=== PATIENT | male | born 2005 | race Caucasian/White ===

== ENCOUNTER → 2023-03-01 | Outpatient (CLI) | payer BC ==
--- NOTE | 2023-03-02 14:06 | MR ---
EXAMINATION TYPE: MR knee LT wo con DATE OF EXAM: 03/01/2023 COMPARISON: Outside left knee x-ray March 01, 2023 HISTORY: Left knee pain and swelling due to hockey injury 2 weeks ago. TECHNIQUE: Multiplanar, multisequence images of the knee is performed without IV contrast. FINDINGS: Exam suboptimal as there is motion artifact degradation. MEDIAL MENISCUS: Anterior and posterior horns are intact without tear. LATERAL MENISCUS: Anterior and posterior horns are intact without tear. CRUCIATE LIGAMENTS: The anterior and posterior cruciate ligaments are intact and unremarkable. COLLATERAL LIGAMENTS: The medial collateral ligament and lateral collateral ligament complex are inta ct and unremarkable. EXTENSOR MECHANISM: Visualized quadriceps and patellar tendons are intact. Small amount of fluid is s een deep to the inferior patellar tendon. EFFUSION: [id number]-dn-tomlomvx size suprapatellar joint effusion. POPLITEAL CYST: No popliteal/castillo cyst. TRICOMPARTMENT SPACES: Tricompartment joint spaces are maintained. No significant spurring is seen. CARTILAGE: Tricompartment articular cartilage is preserved. BONE MARROW SIGNAL: No focal abnormal marrow signal is appreciated. OTHER: No additional significant abnormality is appreciated. IMPRESSION: 1. Suboptimal study. No meniscal or ligamentous tear is seen. Small to moderate-size suprapatellar micheal int effusion noted.
== END | disposition home or self-care (01) ==
LOC: RADMRIMAIN 16:19
PROVIDERS: ATTEND Orthopaedic Surgery
DX: M25.462 Effusion, left knee (principal); M25.562 Pain in left knee

== ENCOUNTER 2023-12-13 08:46 | Day surgery (SDC) | payer BC ==
[2023-12-10 15:34] VITALS: BMI 22.4
--- NOTE | 2023-12-12 09:36 | P.HPOR ---
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 He played in a hockey game when he bent over and felt a pop in his knee. He's had pain ever since. He's been unable really straighten his knee out. He is having pain with any weightbearing activities and using crutches. He denies previous significant problems. Review of Systems Per HPI Past Medical History Past Medical History: No Reported History Additional Past Medical History / Comment(s): Injured rt knee playing hockey. History of Any Multi-Drug Resistant Organisms: None Reported Past Surgical History: Tonsillectomy Additional Past Surgical History / Comment(s): wisdom teeth extracted-received sedation Past Anesthesia/Blood Transfusion Reactions: No Reported Reaction Smoking Status: Never smoker - Past Family History Father Family Medical History: No Reported History Medications and Allergies Home Medications Medication Instructions Recorded Confirmed Type Acetaminophen [Tylenol] 325 mg PO Q4H PRN 12/10/23 12/10/23 History Allergies Allergy/AdvReac Type Severity Reaction Status Date / Time No Known Allergies Allergy Verified 12/10/23 15:25 Physical Examination - Knee right Appearance: effusion Effusion grade: grade 2 Tenderness with palpation: medial ROM: extension: -25 degrees ROM: flexion: 100 degrees Crepitus with motion: Yes Strength: extension: 5/5 Strength: flexion: 5/5 Meniscal tests: medial meniscal tests: positive, medial joint line pain: positive Results Patient is a well-developed well-nourished male approximately 6 foot tall, 160 pounds of mesomorphic habitus. HEENT exam is nonfocal, neck is supple. He has painless passive motion of the right hip. Straight leg raise negative. He is tender about the medial joint line of the right knee. Collaterals are stable, Mya was negative, Anirudh elicits medial pain. His distal neurovascular appears intact in the right lower extremity. - Diagnostic results Knee MRI: image reviewed (MRI of the right knee is reviewed and shows a medial meniscal tear.) Assessment and Plan Assessment: Right knee symptomatic medial meniscal tear Plan: I talked to the patient regarding his condition along with treatment options. At this point he is quite symptomatic and likely has a locked bucket-handle tear. After athorough discussion opts to proceed with surgery. We'll plan to right knee arthroscopy with probable partial medial meniscectomy versus attempted meniscal repair. Risks and benefits are discussed at length in layman's terms. We will likely perform as an outpatient procedure.
[~2023-12-13 08:46] MED LIST: LIDOCAINE 1% (10MG/ML) FOR IV START INTRADERMA PRN; MIDAZOLAM 2 MG/2 ML VIAL IV PRN
[2023-12-13] MEDS: IV FLUID CONTINUATION 1,000 ML IV ONE ×2 (09:03→12:04)
[2023-12-13] MEDS: DEXAMETHASONE SOD PHOSPHATE 4 MG/ML 1 ML VIAL IV ONE (09:10)
[2023-12-13] MEDS: ONDANSETRON 4 MG/2 ML VIAL IVP ONE (09:10)
[2023-12-13] MEDS: LACTATED RINGERS 1,000 ML IV SCH (09:11)
[2023-12-13 09:18] VITALS: TEMP 97.3
[2023-12-13 09:35] LABS: Basophils % (A) 0 %; Eosinophils # (A) 0.1 k/uL (0-0.7); Eosinophils % (A) 1 %; HCT 53.6 % (39.0-53.0); HGB 18.2 gm/dL (13.0-17.5); Lymphocytes % (A) 24 %; MCH 31.3 pg (25.0-35.0); MCV 91.9 fL (80.0-100.0); Mean Platelet Volume 7.4; Monocytes # (A) 0.6 k/uL (0-1.0); Monocytes % (A) 7 %; Neutrophils # (A) 5.6 k/uL (1.3-7.7); Neutrophils % (A) 66 %; Platelet Count 359 k/uL (150-450); RBC 5.83 m/uL (4.30-5.90); RDW 11.7 % (11.5-15.5); WBC 8.5 k/uL (4.0-11.0)
[2023-12-13] MEDS ORDERED: fentaNYL (PF) 50 MCG/ML 2 ML AMP ONE (10:12)
[2023-12-13] MEDS ORDERED: LIDOCAINE 1% INJ 10MG/ML (20 ML MDV) ONE (10:12)
[2023-12-13] MEDS ORDERED: PROPOFOL 10 MG/ML 20 ML VIAL IV ONE (10:12)
[2023-12-13] MEDS ORDERED: MIDAZOLAM 2 MG/2 ML VIAL ONE (10:12)
[2023-12-13] MEDS: EPINEPHrine (PF) 1 ML in SODIUM CHLORIDE 0.9% IRRIGATIO 3,000 ML IRRIGATION ONE (10:17)
[2023-12-13] MEDS: MEPERIDINE 50 MG/ML SYRINGE IVP STA (11:18)
[2023-12-13 11:24] VITALS: RESP 16
[2023-12-13] MEDS: HYDROmorphone 0.5 MG/0.5 ML SYRINGE IVP PRN (11:32)
[2023-12-13] MEDS: KETOROLAC 15 MG/ML 1 ML VIAL IVP STA (11:56)
[2023-12-13] MEDS: HYDROcodone/APAP 5-325MG 1 EACH TAB PO STA (12:42)
[2023-12-13 12:59] VITALS: BP 142/64; PULSE 68
--- NOTE | 2023-12-13 14:22 | P.OP ---
Date of Procedure: 12/13/23 Preoperative Diagnosis: Right knee internal derangement Postoperative Diagnosis: Bucket-handle tear right knee medial meniscus, grade 2 chondral injury anterior lateral tibial plateau Procedure(s) Performed: Right knee arthroscopic partial medial meniscectomy/lateral tibial chondrectomy Anesthesia: OSCARA Surgeon: Aneesh Barnett Estimated Blood Loss (ml): 10 Pathology: none sent Condition: stable Disposition: PACU Indications for Procedure: The patient's a 17-year-old male presents with right knee pain after a recent injury. Clinically he was noted have evidence of a locked bucket-handle tear involving the medial meniscus. A discussion of the risks and benefits of operative intervention made with patient and his family. Operative options including partial medial meniscectomy versus repair were discussed. Operative Findings: As below Description of Procedure: The patient was brought to the operating room, and after induction of general anesthesia examined the right knee. Collaterals were stable, Mya was negative, and posterior drawer was negative. The right lower extremity was prepped and draped in a normal fashion. A superior lateral portal was made through a 3 mm skin incision superior and lateral to the patella. This was used for outflow. A lateral portal was made through a 5 mm vertical skin incision lateral to the patella tendon above the joint line. Diagnostic arthroscopy was performed. On inspection of the medial compartment, a locked bucket handle tear involving medial meniscus was noted. I was able to reduce this. The posterior medial portion was quite macerated. This appeared to be in the white-white junction. At this point I did not feel it was amenable to repair.. This was debrided back to a stable base with straight baskets and a motorized shaver. The remaining medial meniscus was stable and intact. On inspection of the notch, the anterior cruciate ligament appeared to be intact. On inspection of the lateral compartment, a grade 2 chondral injury was noted involving the anterior lateral tibial plateau measuring 4 x 4 millimeters. There was a loose chondral flap debrided back to stable base with a motorized shaver. The lateral meniscus was stable and intact.. On inspection of the patellofemoral articulation no significant pathology was noted. The gutters were clear debris. The knee was then thoroughly irrigated. The portals were closed with Steri-Strips. A sterile dressing was applied in addition to a compression stocking. The patient was awoken from general anesthesia and transferred to recovery room in good condition. Blood loss was estimated at 10 mL. No complications were incurred.
== END 2023-12-13 13:24 | disposition home or self-care (01) ==
LOC: OR 08:46
PROVIDERS: ATTEND Orthopaedic Surgery
DX: S83.281A Other tear of lateral meniscus, current injury, right knee, initial encounter (principal); X58.XXXA Exposure to other specified factors, initial encounter; Z90.89 Acquired absence of other organs; Z79.1 Long term (current) use of non-steroidal anti-inflammatories (NSAID)
CPT/HCPCS: 85025; 29881; J2250; J1100; J2175; J0690; J2405; J0171; J2001; J3010; J1885; J2704; J1170